=== PATIENT | male | born 1945 | race Caucasian/White ===

== ENCOUNTER 2017-02-27 09:52 | Emergency (ER) | payer MEDICARE ==
[~2017-02-27] VITALS: Ht 160 cm; Wt 67.1 kg
[2017-02-27 10:06] VITALS: BP 108/52
[2017-02-27 10:23] LABS: HEMATOCRIT 45.2 % (42.0-52.0); HEMOGLOBIN 14.8 G/DL (14.2-18.0); MEAN CORPUSCULAR VOLUME 92 FL (80-99); PLATELET COUNT 205 K/UL (150-450); RED BLOOD COUNT 4.91 M/UL (4.70-6.10); RED CELL DISTRIBUTION WIDTH 11.1 % (11.6-14.8); WHITE BLOOD COUNT 6.6 K/UL (4.8-10.8)
[2017-02-27] MEDS ORDERED: LUPRON DEPOT3.75 M1 IM (10:25)
[2017-02-27] MEDS ORDERED: ONCE DAILY1 EAC1 ORAL (10:25)
[2017-02-27] MEDS ORDERED: ZETIA10 MG ORAL (10:25)
[2017-02-27] MEDS ORDERED: ZYTIGA250 MG ORAL (10:25)
[2017-02-27] MEDS ORDERED: ASPIRIN81 MG ORAL (10:25)
[2017-02-27] MEDS ORDERED: PROTONIX40 MG ORAL (10:25)
[2017-02-27 10:40] LABS: ANION GAP 9 mmol/L (5-15); BLOOD UREA NITROGEN 29 mg/dL (7-18); CALCIUM 6.7 MG/DL (8.5-10.1); CARBON DIOXIDE 21 MMOL/L (21-32); CHLORIDE 110 MMOL/L (98-107); POTASSIUM 3.5 MMOL/L (3.5-5.1); SODIUM 140 MMOL/L (136-145)
[2017-02-27 10:45] LABS: ALANINE AMINOTRANSFERASE 42 U/L (12-78); ALBUMIN 2.9 G/DL (3.4-5.0); ALBUMIN/GLOBULIN RATIO 1.1 (1.0-2.7); ALKALINE PHOSPHATASE 42 U/L (46-116); ASPARTATE AMINO TRANSFERASE 23 U/L (15-37); BILIRUBIN,TOTAL 0.6 MG/DL (0.2-1.0); CKMB 1.5 NG/ML (0.0-3.6); CREATINE KINASE 71 U/L (26-308)
[2017-02-27] MEDS ORDERED: Aspirin Baby 81mg ORAL ONE (11:30)
--- NOTE | 2017-02-27 11:55 | Emergency Room Report ---
History of Present Illness General Chief Complaint: Dizziness Source: Patient Present Illness HPI 71-year-old male brought in from [facility] by EMS but with dizziness and shortness of breath. Patient with history of high blood pressure, took his medication this morning. Doesn't know which medications he takes. States he walked 1 mile to [facility], at [facility] had some shortness of breath. Patient stated that after sitting for service, when he stood up he felt dizzy Denies precipitating chest pain, shortness of breath or palpitations no Previous heart attack or stroke or PE Allergies: Coded Allergies: No Known Allergies (Unverified , 02/27/17) Patient History Past Medical History: HTN Past Surgical History: none Pertinent Family History: none Social History: Denies: smoking, alcohol use, drug use Immunizations: UTD Reviewed Nursing Documentation: PMH: Agreed, PSxH: Agreed Nursing Documentation-PMH Past Medical History: No History, Except For Hx Hypertension: Yes Hx Cancer: Yes - prostate CA Hx Gastrointestinal Problems: Yes - GERD Review of Systems All Other Systems: negative except mentioned in HPI Physical Exam Vital Signs Date Time Temp Pulse Resp B/P (MAP) Pulse Ox O2 Delivery O2 Flow Rate FiO2 02/27/17 09:48 80 18 108/52 100 Room Air 02/27/17 10:06 97.7 Sp02 EP Interpretation: reviewed, normal General Appearance: normal inspection, well appearing, no apparent distress, alert, GCS 15, non-toxic, other - Complaining of mild dizziness when moving from sitting to standing position Head: normocephalic, atraumatic Eyes: bilateral eye PERRL, bilateral eye EOMI ENT: normal ENT inspection, hearing grossly normal, normal pharynx, no angioedema, normal voice, TMs + canals normal, uvula midline, moist mucus membranes Neck: normal inspection, full range of motion, supple, thyroid normal, no meningismus, no bony tend Respiratory: normal inspection, lungs clear, normal breath sounds, no rhonchi, no respiratory distress, no retraction, no accessory muscle use, no wheezing, speaking full sentences Cardiovascular #1: regular rate, rhythm, no edema, no JVD, normal capillary refill Gastrointestinal: normal inspection, normal bowel sounds, non tender, soft, no mass, no peritonitis, non-distended, no guarding, no hernia, no pulsatile mass Genitourinary: no CVA tenderness Musculoskeletal: normal inspection, back normal, normal range of motion, no calf tenderness, pelvis stable, Kashmir's Sign negative Neurologic: normal inspection, alert, oriented x3, responsive, motor patrol operator III-XII nml as tested, motor strength/tone normal, cerebellar normal, normal gait, speech normal Psychiatric: normal inspection, judgement/insight normal, mood/affect normal, no suicidal/homicidal ideation, no delusions Skin: normal inspection, normal color, no rash Lymphatic: normal inspection, no adenopathy Medical Decision Making Diagnostic Impression: Primary Impression: Dizziness ER Course ECG is nonischemic initial troponin 0.063 Second troponin also 0.63 patient remains asymptomatic H&H stable, metabolic abnormalities no leukocytosis took baby aspirin this morning, was given additional 81 mg of aspirin here Does have some mild dizziness when changing position Symptoms likely orthostatic hypotension due to blood pressure medication will followup with field appraiser in 2 days ER course: Patient has remained stable during ED stay. Disposition: Patient is to be discharged to home. Patient is instructed to follow up with field appraiser within 2 days Strict return precautions discussed with patient such as fever, chills, worsening/severe pain, nausea, vomiting, which may indicate severe illness. Patient verbalizes understanding and agrees with plan. Please note that this Emergency Department Report was dictated using [employer]cyber operator technology software, occasionally this can lead to erroneous entry secondary to interpretation by the dictation equipment EKG Diagnostic Results Rate: normal Rhythm: NSR ST Segments: no acute changes ASA given to the pt in ED: Yes Rhythm Strip Diag. Results EP Interpretation: yes Rate: 77 Rhythm: NSR, no PVC's, no ectopy Last Vital Signs Date Time Temp Pulse Resp B/P (MAP) Pulse Ox O2 Delivery O2 Flow Rate FiO2 02/27/17 10:06 97.7 80 18 108/52 100 Room Air Status: improved Disposition: HOME, SELF-CARE JANICE GALARZA M.D. Feb 27, 2017 11:55
[2017-02-27 12:36] VITALS: BP 123/69
[2017-02-27 13:34] VITALS: BP 123/67
[2017-02-27 13:36] VITALS: BP 123/67
--- NOTE | 2017-03-02 00:04 | Cardiology Report ---
APPROVED REPORT EKG Measurement Heart [id number] Normal sinus rhythm Possible septal infarct, age undetermined Abnormal ECG
== END 2017-02-27 13:40 | disposition home or self-care (01) ==
LOC: EDBD 09:52 → EMR 13:10
DX: R42 Dizziness and giddiness (principal); I10 Essential (primary) hypertension; Z85.46 Personal history of malignant neoplasm of prostate; K21.9 Gastro-esophageal reflux disease without esophagitis
CPT/HCPCS: 36415; 80053; 82550; 82553; 83880; 84484; 85007; 85025; 93005; 99282